=== PATIENT | female | born 1940 | race Caucasian/White ===

== ENCOUNTER → 2018-07-27 | Outpatient (CLI) | payer OTHER ==
[~2018-07-27] VITALS: Ht 162.6 cm; Wt 86.2 kg
[~2018-07-27] MED LIST: ASPIR 8181 MG PO; CRESTOR10 MG PO; HYZAAR 50-12.51 EACH PO; VASCEPA1 GM PO; VITAMIN D5000 UNIT PO; ZOLOFT25 MG PO; ZYRTEC10 M4 PO
--- NOTE | ~2018-07-27 | CATHLAB ---
[place] [address] [facility] [place] [address] INVASIVE PROCEDURE REPORT Name: UMBERTO GONZALEZ Room #: REG [facility]#: [id number] Admission: 07/27/18 Attend Phys: Luca Patrick MD Discharge: Date of : 44 Date of Service: 07/27/18 1646 Report #: [id number] THIS REPORT FOR: //name// APPROVED REPORT Study performed: 07/27/2018 11:08:02 Patient Details Patient Status: Out-Patient Room #: The patient is a 78 year-old female Event Personnel [place] Nurse, Jacob Goncalves RN RN, Woodrow Kim RN, Elaine Turner Sandifer, David Monitor Procedures Performed Left Heart Cath w/or w/o Coronaries [id number] [facility] Indication Dyspnea, Positive stress test, Chest pain Risk Factors Hypercholesterolemia, Hypertension Procedure Narrative The Right Groin^ was infiltrated with 1% Lidocaine subcutaneous anesthesia. A PINNACLE 4FR Sheath #[id number] sheath was inserted into the RFA^. Coronary angiography was performed using coronary diagnostic catheters. The right coronary system was accessed and visualized with a JR4 catheter. The left coronary system was accessed and visualized with a JL4 catheter. The left ventricle was accessed and visualized with a PIGTAIL catheter. Left ventricular/Aortic Valve gradient assessed via catheter pullback. Left ventriculogram was performed in 30 degree projection. Hemostasis was obtained with manual pressure following sheath removal without any complications. The patient tolerated the procedure well and there were no complications associated with the procedure. There was no hematoma. Intraoperative Conscious Sedation Sedation start time: 11.26 Case end Time: 11.52 Fentanyl 50 mcg Versed 1 mg Fluoro Time: 2.41 minutes [facility] [address] [place] [address] INVASIVE PROCEDURE REPORT Name: UMBERTO GONZALEZ [facility] Room #: REG [facility]#: [id number] Admission: 07/27/18 Attend Phys: Luca Patrick MD Discharge: Date of : 44 Date of Service: 07/27/18 1646 Report #: [id number] Dose: DAP 2908 cGycm2 386 mGy Contrast Type and Amount: Omnipaque 100 ml Coronary Angiography The patient's coronary anatomy is co- dominant. Diagnostic Cath Left Main Patent vessel, with no flow-limiting lesions. LAD The LAD is a moderate size caliber vessel, traveling down the anterior wall and terminates at the apex. There is mild disease in the mid segment, less than 20%. Diagonal 1 Small-caliber vessel, with no flow-limiting lesions. Diagonal 2 Small-caliber vessel, with no flow-limiting lesions. Circumflex Codominant vessel with minimal plaquing in the proximal segment. OM1 Moderate size caliber vessel, with no flow-limiting lesions. OM2 Moderate size caliber vessel, with no flow-limiting lesions. Right Coronary There is mild disease in the proximal segment, 20%. R PDA Patent vessel, with no flow-limiting lesions. Left Ventriculography The left ventricle is normal in size with normal contractility. The left ventricular ejection fraction is estimated to be 55-60%. Hemodynamics The aortic pressure is 168/72 mmHg with a mean of 101 mmHg. The left ventricular pressure is 160/12 mmHg with a mean of mmHg. The left ventricular end diastolic pressure is 25 mmHg. There was no gradient across the aortic valve upon pullback. Pullback from the left ventricle to the aorta revealed no gradient across the aortic valve. Conclusion 1. 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 2. Codominant system. 3. Normal LV systolic function. 4. Recommend risk factor management. <ELECTRONICALLY SIGNED> By: Luca Patrick MD 07/27/18 1646 45 45 Luca Patrick MD /INF
--- NOTE | ~2018-07-27 | EKG ---
[address] [address] ELECTROCARDIOGRAM REPORT Name: UMBERTO GONZALEZ Room #: [facility]#: [id number] Admission: 07/27/18 Attend Phys: Luca Patrick MD Discharge: Date of : 44 Report #: [id number] THIS REPORT FOR: //name// [facility] Test Date: 2018-07-27 Test Time: 10:18:40 Pat Name: UMBERTO GONZALEZ Department: Room: Gender: F [employer] Operator: Esteban AGGARWAL : 1940 Requested By: Luca Patrick Order Number: [id number] MD: Zach Timmons Measurements Intervals [place] Rate: 58 P: 12 [place]: 170 QRS: -6 QRSD: 96 T: 26 QT: 480 QTc: 472 Interpretive Statements Sinus rhythm Abnormal R-wave progression, early transition No previous ECG available for comparison Electronically Signed On 07-27-2018 13:04:00 CDT by Zach Timmons [email or web address] <ELECTRONICALLY SIGNED> By: aZch Timmons MD 07/27/18 1304 1018 17 Zach Timmons MD /[email or web address]
[2018-07-27 10:34] LABS: HEMATOCRIT 41.7 % (37.0-47.0); HEMOGLOBIN 14.3 gm/dL (12.0-15.0); MCH 30.6 pg (26.0-34.0); MCHC 34.4 g/dL (28.0-37.0); MCV 88.8 fL (80.0-100.0); RBC 4.7 mil/uL (4.20-5.00); RDW 13.4 % (10.5-14.5); WBC 7.3 thou/uL (4.0-11.0)
[2018-07-27 10:37] VITALS: BP 131/59
[2018-07-27 10:44] LABS: CALCIUM 9.1 mg/dL (8.5-10.1); CREATININE 0.8 mg/dL (0.6-1.0); POTASSIUM 3.9 mmol/L (3.5-5.1)
== END | disposition home or self-care (01) ==
LOC: CATH 09:17
PROVIDERS: Internal Medicine Cardiovascular Disease
DX: I25.10 Atherosclerotic heart disease of native coronary artery without angina pectoris (principal); I10 Essential (primary) hypertension; E78.00 Pure hypercholesterolemia, unspecified; R06.00 Dyspnea, unspecified; M81.0 Age-related osteoporosis without current pathological fracture; Z79.82 Long term (current) use of aspirin; Z79.899 Other long term (current) drug therapy; Z87.891 Personal history of nicotine dependence

== ENCOUNTER → 2020-08-24 | Outpatient (CLI) | payer OTHER | LOC: SJCVCIMAG 08-23 10:17 | PROVIDERS: ATTEND Internal Medicine Cardiovascular Disease | DX: I08.0 Rheumatic disorders of both mitral and aortic valves (principal); R55 Syncope and collapse; I25.10 Atherosclerotic heart disease of native coronary artery without angina pectoris; I10 Essential (primary) hypertension; E78.5 Hyperlipidemia, unspecified; M81.0 Age-related osteoporosis without current pathological fracture; Z79.82 Long term (current) use of aspirin; Z79.899 Other long term (current) drug therapy ==